=== PATIENT | female | born 1965 | race Caucasian/White ===

== ENCOUNTER 2019-10-04 13:28 | Outpatient (CLI) | payer OTHER ==
--- NOTE | 2019-10-04 14:35 | CT ---
CT ABDOMEN AND PELVIS WITH IV CONTRAST 10/04/2019 CLINICAL INFORMATION: Left lower quadrant abdominal pain. COMPARISON: None. Technique: Multiple contiguous axial CT images are obtained through the abdomen and pelvis with IV contrast. Cor onal reformatted images are provided. FINDINGS: Lower Chest: Lung bases are clear. Vessels: Mild vascular calcifications are seen in the infrarenal abdominal aorta. The abdominal aorta is normal in caliber. Abdomen: Portal vein:Patent Gallbladder: Within normal limits for CT imaging. Liver: Subcentimeter too small to characterize hypodense lesion is seen in the posterior segment righ t hepatic lobe. Spleen: within normal limits. Pancreas: within normal limits. Adrenals: within normal limits. Kidneys: within normal limits. Bowel: Normal caliber. Appendix: The appendix is visualized and normal in caliber. Peritoneum: Trace amount of free fluid is seen in the pelvis. Mesentery and Retroperitoneum: No enlarged mesenteric or retroperitoneal lymph nodes. Abdominal Wall: within normal limits. Pelvis: Reproductive Organs: Uterus is absent. Pelvis: small low-density areas are seen in each ovary which are difficult to characterize but may re present small follicles or cysts. Bladder: within normal limits. Bones: There is a slightly irregular sclerotic density seen in the medial supra-acetabular region of the right iliac bone. The margins do appear to have interdigitated margins, and this may represent a bone island. This does have appearance of a lesion of low biological activity. Mild degenerative ch anges are seen in the lumbar spine. This sclerotic density measures 1.7 cm IMPRESSION: 1. No acute findings in the abdomen or pelvis. 2. Sclerotic lesion supra-acetabular region right iliac bone which has appearance of a lesion of low biological activity and potentially may represent a bone island. However, further evaluation with bone scan is recommended. 3. Subcentimeter too small to characterize hypodense lesion right hepatic lobe. 4. Trace amount of free fluid pelvis.
== END 2019-10-04 13:29 | disposition home or self-care (01) ==
LOC: MADCT 13:28
PROVIDERS: ATTEND Nurse Practitioner Family
DX: R10.32 Left lower quadrant pain (principal); K76.9 Liver disease, unspecified; M89.9 Disorder of bone, unspecified
CPT/HCPCS: 74177